=== PATIENT | male | born 1995 | race Hispanic/Latino ===

== ENCOUNTER 2017-10-09 14:05 | Emergency (ER) | payer OTHER ==
[~2017-10-09] VITALS: Ht 170.2 cm; Wt 74.8 kg
[2017-10-09] MEDS ORDERED: CEFTRIAXONE SOD 1 GM VIAL IM ONE (14:30)
[2017-10-09] MEDS ORDERED: AZITHROMYCIN 250 MG TAB PO ONE (14:30)
[2017-10-09] MEDS ORDERED: IBUPROFEN 600 MG TAB PO STA (14:49)
[2017-10-09 14:56] LABS: BILIRUBIN,URINE NEGATIVE (NEGATIVE); KETONES,URINE NEGATIVE (NEGATIVE); LEUKOCYTE ESTERASE ,URINE NEGATIVE (NEGATIVE); NITRITE,URINE NEGATIVE (NEGATIVE); PROTEIN,URINE DIPSTICK NEGATIVE (NEGATIVE); URINE UROBILINOGEN 0.2 mg/dL (0.2 - 1)
[2017-10-09 14:57] LABS: CLARITY,URINE CLEAR (CLEAR); COLOR,URINE STRAW (YELLOW)
[2017-10-09 15:11] LABS: RBC,URINE 0-5 /HPF (0-5); WBC,URINE (MAN) 0-5 /HPF (0-5)
[2017-10-09 16:28] VITALS: BP 128/72
== END 2017-10-09 16:33 | disposition home or self-care (01) ==
LOC: ER 14:05
DX: R30.0 Dysuria (principal); N34.1 Nonspecific urethritis
CPT/HCPCS: 81001; 87086; 96372; 99283; J0696